=== PATIENT | male | born 1990 | race Caucasian/White ===

== ENCOUNTER 2017-12-22 12:29 | Day surgery (SDC) | payer OTHER ==
[2017-12-21 12:06] VITALS: BMI 22.8
[2017-12-22] MEDS ORDERED: MIDAZOLAM HCL 2 MG/2 ML SINGLE DOSE VIAL ONE (15:05)
[2017-12-22] MEDS ORDERED: KETOROLAC TROMETHAMINE 30 MG/1 ML VIAL ONE (15:29)
[2017-12-22] MEDS ORDERED: ONDANSETRON 4 MG/2 ML VIAL ONE (15:29)
[2017-12-22] MEDS ORDERED: ceFAZolin SODIUM 1 GM VIAL ONE (15:29)
[2017-12-22] MEDS ORDERED: LIDOCAINE HCL 2% JELLY (5 ML/TUBE) ONE (15:29)
[2017-12-22] MEDS ORDERED: DEXAMETHASONE SOD PHOSPHATE 4 MG/1 ML VIAL ONE (15:29)
[2017-12-22] MEDS ORDERED: HYDROmorphone HCL/PF 1 MG/ML VIAL (FOR PYXIS CHARGING ONLY) ONE (15:37)
[2017-12-22] MEDS ORDERED: BUPIVACAINE HCL/PF 0.25% (2.5MG/ML) 10 ML VIAL IJ ONE (17:14)
[2017-12-22] MEDS ORDERED: oxyCODONE HCL 5 MG TABLET PO ONE ×2 (17:42)
[2017-12-22] MEDS ORDERED: PROMETHAZINE HCL 25 MG/1 ML VIAL IVPUSH PRN (17:42)
[2017-12-22] MEDS ORDERED: ONDANSETRON 4 MG/2 ML VIAL IVPUSH PRN (17:42)
[2017-12-22] MEDS ORDERED: ALPRAZolam 0.25 MG TABLET PO ONE (17:43)
[2017-12-22] MEDS ORDERED: ACETAMINOPHEN 325 MG TABLET (FP) PO ONE (17:43)
[2017-12-22] MEDS ORDERED: oxyCODONE HCL 5 MG TABLET ONE (18:12)
[2017-12-22] MEDS ORDERED: ACETAMINOPHEN 325 MG TABLET (FP) ONE (18:16)
[2017-12-22 18:58] VITALS: BP 128/82; PULSE 78; TEMP 97.7
--- NOTE | 2017-12-23 13:42 | OP ---
DATE OF OPERATION: 12/22/2017 PREOPERATIVE DIAGNOSIS: 1. 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 2. Right hamate fracture nonunion. POSTOPERATIVE DIAGNOSIS: 1. 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 2. Right hamate fracture nonunion. OPERATIVE PROCEDURE: 1. Open reduction and internal fixation of right complex chronic multiple 4th and 5th carpometacarpal dislocations. 2. Repair nonunion of right hamate fracture. SURGEON: Seven Pablo MD PERSONAL LINES ACCOUNT MANAGER: IDALMIS Granger ANESTHESIA: General. COMPLICATIONS: None. ESTIMATED BLOOD LOSS: Minimal. INDICATIONS FOR PROCEDURE: The patient is a 27-year-old male who is about 6 months status post this injury. He was indicated for operative treatment. The risks, benefits, and alternatives were discussed with the patient at length, and proper informed consent was obtained. PROCEDURE: After proper identification of the patient and the correct operative site, the patient was brought to the operating room and placed supine on the operating table with prominences well padded. General anesthesia was provided by the anesthesiologist. Intravenous antibiotics were given. Time-out procedure was performed. Right upper extremity was prepped and draped in the usual sterile fashion. Well-padded tourniquet was placed with a sterile prep. Esmarch bandage used to exsanguinate the right upper extremity. Tourniquet inflated to 250 mmHg. A longitudinal incision was made over the dorsal aspect of the hand in line with the 4th and 5th carpometacarpal joints. Incision was taken sharply through the skin with blunt and sharp dissection through the subcutaneous tissues. Capsule over the 4th and 5th carpometacarpal joints was opened longitudinally and elevated off of the joints. Significant scar tissue and calluses were visualized in the area. The hamate dorsal fragment shear fracture was un-united and freed. This represented approximately 40% of the articular surface, and there was some moderate cartilaginous damage at the distal articular surface. This was displaced approximately 1 cm below the articular surface. Significant scar tissue and callus and bone formation was present around the 4th and 5th carpometacarpals which were both dislocated dorsally and proximally. This was fully released while taking care to protect vital adjacent structures. Once the soft tissue was released, the joints were able to be relocated. 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 The joints were reduced and held with 2 K-wires crossing from the 5th to the 4th to the 3rd metacarpals and keeping them in the reduced position. These pins were cut short and bent outside of the skin ulnarly. At this point, the fracture site was debrided of any soft tissue in order to obtain healthy bleeding bone. The hamate dorsal fragment was then replaced with its articular surface against the base of the 4th and 5th metacarpals. This was secured using an [employer] 1.6-mm T-plate. This plate was secured distally with 2 locking screws and a buttress type effect, as well, and it was secured proximally with 2 screws within the hamate and 1 screw crossing over to the capitate to obtain better purchase. Articular alignment looked good on x-rays. Wound was irrigated with saline and repaired in layers including the capsule with 3-0 Vicryl, 4-0 Vicryl, and 4-0 nylon sutures. Sterile dressings were applied. Splint was placed. The patient was reversed from anesthesia and brought to the recovery room in stable condition. Zach Crowell, the phlebotomist lab assistant, was integral throughout the procedure. The procedure could not have been performed without a skilled operative phlebotomist lab assistant. Rosa REDMOND/[id number]
== END 2017-12-22 18:58 | disposition home or self-care (01) ==
LOC: FASU 12:29
PROVIDERS: ATTEND Orthopaedic Surgery Hand Surgery
PROC: 0RSS04Z Reposition Right Carpometacarpal Joint with Internal Fixation Device, Open Approach (ICD-10-PCS; 2017-12-22)
PROC: 0PSM04Z Reposition Right Carpal with Internal Fixation Device, Open Approach (ICD-10-PCS; 2017-12-22)
PROC: 0RSS04Z Reposition Right Carpometacarpal Joint with Internal Fixation Device, Open Approach (ICD-10-PCS; principal; 2017-12-22 14:30)
DX: S63.054A Dislocation of other carpometacarpal joint of right hand, initial encounter (principal); S62.141A Displaced fracture of body of hamate [unciform] bone, right wrist, initial encounter for closed fracture; X58.XXXA Exposure to other specified factors, initial encounter; Y93.9 Activity, unspecified; Y92.9 Unspecified place or not applicable
CPT/HCPCS: 73130-TC-RT; 94760